=== PATIENT | male | born 2000 | race Two or more races ===

== ENCOUNTER 2024-07-15 03:11 | Emergency (ER) | payer SELFPAY ==
[~2024-07-15] VITALS: Ht 167.6 cm; Wt 55.0 kg
[2024-07-15 03:30] VITALS: TEMP 97.8
[2024-07-15] MEDS: NALOXONE HCL 1MG/ML 2ML SYRINGE IV ONE (03:41)
[2024-07-15 04:04] VITALS: BP 115/72; PULSE 71; RESP 16; O2SAT 100
== END 2024-07-15 04:52 | disposition home or self-care (01) ==
LOC: ER 03:11 → EDBD 03:11 → ER 04:52
DX: F10.129 Alcohol abuse with intoxication, unspecified (principal)
CPT/HCPCS: 96374; 99283; J2310